=== PATIENT | female | born 1985 | race Caucasian/White ===

== ENCOUNTER 2019-12-25 04:30 | Emergency (ER) | payer MEDICAID, OTHER ==
[~2019-12-25] VITALS: Ht 162.6 cm; Wt 59.0 kg
[2019-12-25 04:40] VITALS: BP 125/83
--- NOTE | 2019-12-25 04:46 | Emergency Room Report ---
History of Present Illness General Chief Complaint: Upper Extremity Injury Source: Patient Present Illness HPI Disclaimer: Please note that this report is being documented using DRAGON technology. This can lead to erroneous entry secondary to incorrect interpretation by the dictating instrument. HPI: 34-year-old [id number] female presents for evaluation of right wrist pain. 3 weeks ago the patient was angry and states she punched a wall. Noted pain and swelling over the wrist, placed in [id number] wrist splint and applied ice. Noted worsening pain and stiffness. No difficulty bending and flexing at the wrist. Able to flex and extend digits without difficulty. Denies pain in the hand or elbow. Did not seek medical attention at the time of injury. PMH: Denies PSH: Denies Allergies: Denies Allergies: Coded Allergies: No Known Allergies (Unverified , 12/25/19) COVID-19 Screening Contact w/high risk pt: No Recent Travel to affected area: No Experienced COVID-19 symptoms?: No COVID-19 Testing performed SENIOR DATA [employer]DEL[employer]: No Patient History Last Menstrual Period: 12/2019 Nursing Documentation-PMH Past Medical History: No Stated History Review of Systems All Other Systems: negative except mentioned in HPI Physical Exam Vital Signs Date Time Temp Pulse Resp B/P (MAP) Pulse Ox O2 Delivery O2 Flow Rate FiO2 12/25/19 04:32 98.2 99 16 125/83 (97) 99 Room Air General: Awake and alert, no acute distress HEENT: NC/AT. EOMI. Resp: Normal work of breathing Skin: Intact. No abrasions, laceration or rash over the exposed skin MSK: Normal tone and bulk. Moving all extremities. Tenderness palpation over the distal radius and ulna of the right hand without obvious overlying swelling or deformity. Able to flex and extend all digits. Brisk capillary refill less than 2 seconds. 2+ palpable radial pulse. Difficulty with supination and pronation due to pain at the wrist. Able to flex and extend at the elbow without difficulty Neuro: Awake and alert. Mentating appropriately Medical Decision Making Diagnostic Impression: Primary Impression: Wrist pain ER Course 34-year-old female presents for evaluation of right wrist pain 3 weeks after injury. Concern for fracture dislocation x-ray was obtained. There is no obvious fracture appreciated though there may be a very faint hairline cortical irregularity over the ulnar styloid that may represent a previously nondisplaced but now healing fracture. Official radiology interpretation does not note any osseous abnormalities. The patient was placed in a removable splint and I encouraged her to perform stretching exercises and to immobilize if needed. Will start naproxen for swelling and pain. Will refer her to orthopedic surgery for further evaluation she may require advanced imaging on an outpatient basis and specialist reevaluation. Discussed reasons to return to the emergency department. Understands and agrees to treatment plan. Other X-Ray Diagnostic Results Other X-Ray Diagnostic Results : X-Ray ordered: Right wrist # of Views/Limited Vs Complete: 3 View Indication: Pain EP Interpretation: Yes Interpretation: no dislocation, no soft tissue swelling, no fractures, other - Questionable hairline cortical irregularity of the ulnar styloid may represent a subacute fracture with healing Impression: No acute disease Electronically Signed by: Electronically signed by Dr. Bo Singleton Last Vital Signs Date Time Temp Pulse Resp B/P (MAP) Pulse Ox O2 Delivery O2 Flow Rate FiO2 12/25/19 04:32 98.2 99 16 125/83 (97) 99 Room Air Disposition: HOME, SELF-CARE Condition: Stable Scripts Naproxen* (NAPROXEN*) 500 Mg Tablet 500 MG ORAL TWICE A DAY for 14 Days, #28 TAB Prov: Bo Singleton MD 12/25/19 Bo Singleton MD Dec 25, 2019 04:45
--- NOTE | 2019-12-25 05:48 | Diagnostic Imaging Report ---
EXAM: XR Right Wrist Complete, 3 or More Views CLINICAL HISTORY: INJ TECHNIQUE: Frontal, lateral and oblique views of the right wrist. COMPARISON: No relevant prior studies available. FINDINGS: Bones/joints: Unremarkable. No acute fracture. No dislocation. Soft tissues: Unremarkable. No radiopaque foreign body. IMPRESSION: Normal right wrist x-rays.
[2019-12-25] MEDS ORDERED: NAPROXEN500 M2 ORAL (05:57)
[2019-12-25 06:00] VITALS: BP 126/78
== END 2019-12-25 06:00 | disposition home or self-care (01) ==
LOC: EMR 04:50
DX: M25.531 Pain in right wrist (principal)
CPT/HCPCS: 73110; Z7502; 99283